=== PATIENT | female | born 1990 | race Two or more races ===

== ENCOUNTER 2022-01-06 21:22 | Emergency (ER) | payer OTHER ==
[~2022-01-06] VITALS: Ht 172.7 cm; Wt 103.6 kg
[2022-01-06] MEDS ORDERED: IBUPROFEN 600 MG TABLET PO ONE (22:00)
[2022-01-06 22:16] LABS: BASOPHILS % (AUTO) 0.4 % (0.0-2.0); EOSINOPHILS % (AUTO) 1.2 % (1.0-6.0); HEMATOCRIT 40.8 % (36-46); HEMOGLOBIN 13.6 g/dL (12.0-16.0); LYMPHOCYTES # (AUTO) 3.2 K/uL (1.0-4.8); LYMPHOCYTES % (AUTO) 31.4 % (22.0-44.0); MEAN CORPUSCULAR HEMOGLOBIN 28.1 pg (26.0-34.0); MEAN CORPUSCULAR HGB CONC 33.3 G/dL (31.0-37.0); MEAN CORPUSCULAR VOLUME 84 fL (80-100); MONOCYTES # (AUTO) 0.5 K/uL (0.1-1.0); MONOCYTES % (AUTO) 4.9 % (2.0-9.0); NEUTROPHILS # (AUTO) 6.3 K/uL (1.8-7.7); NEUTROPHILS % (AUTO) 62.1 % (40.0-70.0); PLATELET COUNT (AUTO) 219 K/uL (150-450); RED BLOOD CELL COUNT(AUTO) 4.84 MIL/uL (4.00-5.20); RED CELL DISTRIBUTION WIDTH 12.9 % (11.5-14.5)
[2022-01-06 22:28] LABS: ANION GAP 10 mmol/L (8-16); CALCIUM, TOTAL 8.5 mg/dL (8.8-10.5); CARBON DIOXIDE 25 mmol/L (22-29); CHLORIDE 104 mmol/L (98-107); CREATININE 0.67 mg/dL (0.60-1.30); GLOMERULAR FILTR. RATE CALC > 60 mL/min (>60); GLUCOSE,RANDOM 88 mg/dL (70-110); POTASSIUM 3.7 mmol/L (3.5-5.1); SODIUM SERUM 139 mmol/L (136-145); UREA NITROGEN, BLOOD 11 mg/dL (7-18)
[2022-01-06 22:33] LABS: ALANINE AMINOTRANSFERASE 14 U/L (12-78); ALBUMIN 3.6 g/dL (3.4-5.0); ALKALINE PHOSPHATASE 85 U/L (46-116); ASPARTATE AMINOTRANSFERASE 14 U/L (15-37); BILIRUBIN,TOTAL 0.4 mg/dL (0.1-1.0); HCG,QUANTITATIVE < 1 mIU/mL (0-6); LIPASE 60 U/L (73-393); TOTAL PROTEIN, SERUM 7.4 g/dL (6.4-8.2)
[2022-01-06 22:58] LABS: APPEARANCE,URINE CLEAR (CLEAR); BILIRUBIN,URINE NEGATIVE (NEGATIVE); GLUCOSE, URINE (UA) NEGATIVE (NEGATIVE); KETONES,URINE NEGATIVE (NEGATIVE); LEUKOCYTE ESTERASE ,URINE NEGATIVE (NEGATIVE); NITRATE,URINE NEGATIVE (NEGATIVE); OCCULT BLOOD,URINE NEGATIVE (NEGATIVE); PROTEIN,URINE NEGATIVE (NEGATIVE); UROBILINOGEN,URINE 0.2 mg/dL (<=1.0)
[2022-01-07 01:10] VITALS: BP 138/87
== END 2022-01-07 01:12 | disposition home or self-care (01) ==
LOC: EMS 21:47
DX: R10.32 Left lower quadrant pain (principal)
CPT/HCPCS: 76856; 80053; 81003; 83690; 84702; 85025; 99284

== ENCOUNTER 2025-05-07 18:33 | Emergency (ER) | payer OTHER ==
[~2025-05-07] VITALS: Ht 172.7 cm; Wt 83.2 kg
[2025-05-07 18:50] VITALS: TEMP 98.8
[2025-05-07 19:30] VITALS: BP 129/89; PULSE 86; RESP 18; O2SAT 97
[2025-05-07] MEDS ORDERED: ANUSHCS PR (19:38)
== END 2025-05-07 19:49 | disposition home or self-care (01) ==
LOC: EMS 18:33
DX: K64.8 Other hemorrhoids (principal); Z90.49 Acquired absence of other specified parts of digestive tract
CPT/HCPCS: 99282; 99283